=== PATIENT | male | born 1955 | race African-American/Black ===

== ENCOUNTER 2017-01-03 12:18 | Emergency (ER) | payer MEDICARE, OTHER ==
[~2017-01-03] VITALS: Ht 188 cm; Wt 95.3 kg
[~2017-01-03 12:18] MED LIST: CIPR7.5D AS; HYDR-971 PO; ONDA4TAB7 PO; PANT40TA3 PO
[2017-01-03 13:10] VITALS: BP 141/91
--- NOTE | 2017-01-03 13:17 | PHYS DOC ---
Past Medical History Past Medical History: Arthritis Past Surgical History: No Surgical History Alcohol Use: Occasionally Drug Use: Marijuana Adult General Chief Complaint Chief Complaint: [facility] HPI Patient is a 61 year old male presents to the emergency department stating that he has having left upper back and arm pain. Patient states this is been going on for the last few days. He also states that this is happened before in which he had seen his primary care physician in the head provided him with a nonsteroidal anti-inflammatory medication as well as a muscle relaxer. Patient states that his has his prescriptions right now so he is unable to tell me the name of the prescriptions. He denies any numbness or tingling down to his lower extremities. He denies any trauma or injury to the arm. He denies any numbness or tingling into the hand. Review of Systems Review of Systems Constitutional: Denies fever or chills [] Eyes: Denies change in visual acuity, redness, or eye pain [] HENT: Denies nasal congestion or sore throat [] Respiratory: Denies cough or shortness of breath [] Cardiovascular: No additional information not addressed in HPI [] GI: Denies abdominal pain, nausea, vomiting, bloody stools or diarrhea [] : Denies dysuria or hematuria [] Musculoskeletal: Denies back pain complain of left shoulder and upper back pain and discomfort. Integument: Denies rash or skin lesions [] Neurologic: Denies headache, focal weakness or sensory changes [] Endocrine: Denies polyuria or polydipsia [] Allergies Allergies Allergies Coded Allergies Type Severity Reaction Last Updated Verified No Known Drug Allergies 09/24/13 No Physical Exam Physical Exam Constitutional: Well developed, well nourished, no acute distress, non-toxic appearance. [] HENT: Normocephalic, atraumatic, bilateral external ears normal, oropharynx moist, no oral exudates, nose normal. [] Eyes: PERRLA, EOMI, conjunctiva normal, no discharge. [] Neck: Normal range of motion, no tenderness, supple, no stridor. [] Cardiovascular:Heart rate regular rhythm, no murmur [] Lungs & Thorax: Bilateral breath sounds clear to auscultation [] Skin: Warm, dry, no erythema, no rash. [] Back: Patient was noted to have tenderness in the left upper back area as well as into the left upper arm. Extremities: No tenderness, no cyanosis, no clubbing, ROM intact, no edema. Peripheral pulses 2+ cap refill brisk less than 2 seconds. Patient with decreased range of motion of the left upper arm. Patient does have equal sensation noted bilaterally. Neurologic: Alert and oriented X 3, normal motor function, normal sensory function, no focal deficits noted. [] Psychologic: Affect normal, judgement normal, mood normal. [] Current Patient Data Vital Signs Vital Signs Date Time Temp Pulse Resp B/P (MAP) Pulse Ox O2 Delivery O2 Flow Rate FiO2 01/03/17 13:10 98.6 93 16 98 Room Air 98.6 EKG EKG [] Radiology/Procedures Radiology/Procedures [][facility] [address] [place] [address] IMAGING REPORT Signed PATIENT: ALEXIS GRAY ACCOUNT: [id number] : 1955 LOCATION: ER AGE: 61 SEX: M EXAM STATUS: REG ER ORD. PHYSICIAN: JOSE MANUEL DOSHI APRN REASON: left shoulder pain PROCEDURE: SHOULDER 2+V LEFT Indication chronic pain. Internally and externally rotated views of the left shoulder as well as a Y view were obtained. There is some mild glenohumeral degenerative change. Acute bony finding is not seen DICTATED and SIGNED BY: CATRACHITA PORTILLO MD DATE: 01/03/17 1339 CC: JOSE MANUEL DOSHI APRN; RADHIKA ROMERO MD; NON,STAFF ~ Course & Med Decision Making Course & Med Decision Making Pertinent Labs and Imaging studies reviewed. (See chart for details) Per radiology no acute bony findings noted. Patient does have degenerative changes. Patient was placed in a sling will recommend following up with his primary care orthopedic doctor. Recommended ice packs on 20 minutes off 20 minutes several times a day. Patient can continue using his nonsteroidal anti- inflammatories as well as muscle relaxers at home. Signs and symptoms to return back to emergency department provided. Patient agrees with discharge instructions treatment regimens and follow-up recommendations. Spoke with patient regards to taken the arm out of the sling 4-5 times a day to make sure that he can do some active range of motion with the shoulder to prevent freezing of the shoulder. [] Dragon Disclaimer Dragon Disclaimer This electronic medical record was generated, in whole or in part, using a voice recognition dictation system. Departure Departure Impression: Primary Impression: Shoulder pain, left Disposition: 01 HOME, SELF-CARE Condition: STABLE Referrals: RADHIKA ROMERO MD (PCP) SONIA GALLEGO MD Patient Instructions: Arm Sling Use, [id number], Shoulder Pain, [id number] Additional Instructions: Activity as tolerated. With this in the next week. Take the arm out of the sling 4-5 times a day and do active range of motion. Continue to use her home medications in which she state you have nonsteroidal anti-inflammatories as well as muscle relaxers. Follow-up to primary care physician or orthopedic within the next week. Return back to emergency prior signs symptoms of become worse. JOSE MANUEL DOSHI APRN Jan 03, 2017 13:17
--- NOTE | 2017-01-03 13:42 | RAD ---
Indication chronic pain. Internally and externally rotated views of the left shoulder as well as a Y view were obtained. There is some mild glenohumeral degenerative change. Acute bony finding is not seen
== END 2017-01-03 13:57 | disposition home or self-care (01) ==
LOC: ER 12:18
DX: M25.512 Pain in left shoulder (principal); M54.6 Pain in thoracic spine; M19.90 Unspecified osteoarthritis, unspecified site; F12.10 Cannabis abuse, uncomplicated
CPT/HCPCS: 73030; 99284

== ENCOUNTER 2017-11-06 20:55 | Emergency (ER) | payer MEDICARE, OTHER ==
[2017-11-06] MEDS: FLUORESCEIN OPHTH TEST STRIP. OS (21:30)
[2017-11-06] MEDS: TETRACAINE 0.5% OPHTH SOLUTION 4ML BOTTLE. OS (21:30)
== END 2017-11-06 21:47 | disposition left against medical advice (07) ==
LOC: ER 20:55
DX: H57.12 Ocular pain, left eye (principal); Z53.21 Procedure and treatment not carried out due to patient leaving prior to being seen by health care provider

== ENCOUNTER 2018-01-13 21:45 | Emergency (ER) | payer MEDICARE ==
[2018-01-13 22:29] LABS: ADD MAN DIFF? NO
[2018-01-13 22:33] LABS: BASO # 0.1 x10^3/uL (0.0-0.2); BASO % 1 % (0-3); EOS # 0.1 x10^3/uL (0.0-0.7); EOS % 1 % (0-3); HEMATOCRIT 43.2 % (39.0-53.0); HEMOGLOBIN 15.1 g/dL (13.0-17.5); LYMPH % 20 % (24-48); MEAN CORPUSCULAR HEMOGLOBIN 34 pg (25-35); MEAN CORPUSCULAR HGB CONC 35 g/dL (31-37); MEAN CORPUSCULAR VOLUME 98 fL (79-100); MONO # 0.8 x10^3/uL (0.0-1.1); MONO % 7 % (0-9); NEUT # 7.4 x10^3uL (1.8-7.7); NEUT % 72 % (31-73); PLATELET COUNT 263 x10^3/uL (140-400); RED BLOOD COUNT 4.42 x10^6/uL (4.30-5.70); WHITE BLOOD COUNT 10.4 x10^3/uL (4.0-11.0)
[2018-01-13 22:43] LABS: ANION GAP 10 (6-14); BLOOD UREA NITROGEN 7 mg/dL (8-26); CALCIUM 8.7 mg/dL (8.5-10.1); CARBON DIOXIDE 25 mmol/L (21-32); CHLORIDE 104 mmol/L (98-107); CREATININE 1.4 mg/dL (0.7-1.3); GFR 62.6; GLUCOSE 132 mg/dL (70-99); POTASSIUM 3.2 mmol/L (3.5-5.1); SODIUM 139 mmol/L (136-145)
[2018-01-13 22:46] LABS: ALBUMIN 3.2 g/dL (3.4-5.0); ALK PHOS 111 U/L (46-116); ALT (SGPT) 22 U/L (16-63); AST (SGOT) 14 U/L (15-37); DIRECT BILIRUBIN 0.1 mg/dL (0.0-0.2); LIPASE 126 U/L (73-393); TOTAL BILIRUBIN 0.4 mg/dL (0.2-1.0); TOTAL PROTEIN 7.2 g/dL (6.4-8.2)
[2018-01-13] MEDS ORDERED: IOHEXOL 300 MG/ML 100ML VIAL. IV (23:00)
[2018-01-13] MEDS ORDERED: CONTRAST GIVEN. MC (23:00)
[2018-01-13] MEDS: MORPHINE SULFATE 10 MG/ML VIAL. IV (23:10)
[2018-01-13] MEDS ORDERED: IV NORMAL SALINE 1000ML BAG 1,000 ML IV (23:30)
[2018-01-13 23:38] LABS: BILIRUBIN,URINE NEGATIVE (NEG); CLARITY,URINE CLEAR; COLOR,URINE YELLOW; GLUCOSE,URINE NEGATIVE (NEG); NITRITE,URINE NEGATIVE (NEG); PH,URINE 7.5; PROTEIN,URINE NEGATIVE (NEG-TRACE)
[2018-01-13 23:45] LABS: BACTERIA,URINE 0 /HPF (0-FEW); RBC,URINE OCC /HPF (0-2); SQUAMOUS EPITHELIAL CELL,UR FEW /LPF; WBC,URINE RARE /HPF (0-4)
== END 2018-01-14 00:15 | disposition home or self-care (01) ==
LOC: ER 01-14 00:15
DX: R10.84 Generalized abdominal pain (principal); R11.2 Nausea with vomiting, unspecified; M19.90 Unspecified osteoarthritis, unspecified site; F32.9 Major depressive disorder, single episode, unspecified
CPT/HCPCS: 36415; 74177; 80048; 80076; 81001; 83690; 85025; 96374; 99285-25; J2270

== ENCOUNTER 2018-06-24 09:34 | Emergency (ER) | payer MEDICARE, OTHER ==
[~2018-06-24] VITALS: Ht 190.5 cm; Wt 102.1 kg
[~2018-06-24 09:34] MED LIST changes: +ESOM40CA PO; +HYDR-3164 PO; -HYDR-971 PO; +METO10TA81 PO
[2018-06-24] MEDS ORDERED: IV NORMAL SALINE 1000ML BAG 1,000 ML IV SCH (09:56)
[2018-06-24] MEDS ORDERED: fentaNYL PF VIAL 100 MCG/2 ML VIAL IV ONE ×2 (10:00→13:15)
[2018-06-24] MEDS ORDERED: ONDANSETRON PF 4 MG/2 ML VIAL. IV ONE ×2 (10:00→13:15)
--- NOTE | 2018-06-24 10:01 | PHYS DOC ---
Past Medical History Past Medical History: Arthritis, Depression, Other Additional Past Medical Histor: feet swelling,CHRONIC PAIN Past Surgical History: No Surgical History Additional Information: 0.5 PPD Alcohol Use: Occasionally Drug Use: Marijuana Adult General Chief Complaint Chief Complaint: ABDOMINAL PAIN [facility] HPI Patient is a 62-year-old male who presents with complaint of mid abdominal pain but he states he has been having for approximately 6 months. Patient indicates that he has been seen a few times for the same complaint and states the symptoms are just progressively getting worse. He states that last night the pain kept him up and he states that he had to sleep sitting up because it seemed like he had vomit that was going up to his throat most of the night. He states he is just not been able to actually vomit but can feel it in his throat. He rates pain at an 8 out of 10 and describes it as a deep cramp. He states that food makes the pain worse and nothing improves his pain. Review of Systems Review of Systems Constitutional: Denies fever or chills [] Respiratory: Denies cough or shortness of breath [] Cardiovascular: No additional information not addressed in HPI [] GI: Complains of abdominal pain with nausea and vomiting. No diarrhea [] Neurologic: Denies headache, focal weakness or sensory changes [] All other systems were reviewed and found to be within normal limits, except as documented in this note. Current Medications Current Medications Current Medications Medications (Trade) Dose Ordered Sig/Louis Start Time Stop Time Status Last Admin Dose Admin Fentanyl Citrate (Fentanyl 2ml Vial) 50 mcg 1X ONCE 06/24/18 13:15 06/24/18 13:16 DC Info (CONTRAST GIVEN -- Rx MONITORING) 1 each PRN DAILY PRN 06/24/18 11:45 06/26/18 11:44 Iohexol (Omnipaque 300 Mg/ml) 75 ml 1X ONCE 06/24/18 12:00 06/24/18 12:01 DC 06/24/18 11:54 75 ML Ondansetron HCl (Zofran) 4 mg 1X ONCE 06/24/18 13:15 06/24/18 13:16 DC Sodium Chloride 1,000 ml @ 1,000 mls/hr Q1H 06/24/18 09:56 06/24/18 10:55 DC 06/24/18 10:20 1,000 MLS/HR Allergies Allergies Allergies Coded Allergies Type Severity Reaction Last Updated Verified No Known Drug Allergies 09/24/13 No Physical Exam Physical Exam Constitutional: Well developed, well nourished, no acute distress, non-toxic appearance. [] HENT: Normocephalic, atraumatic, bilateral external ears normal, oropharynx moist, no oral exudates, nose normal. [] Eyes: PERRLA, EOMI, conjunctiva normal, no discharge. [] Neck: Normal range of motion, no tenderness, supple, no stridor. [] Cardiovascular: Regular rate and rhythm, no murmur [] Lungs & Thorax: Bilateral breath sounds clear to auscultation [] Abdomen: Bowel sounds normal, soft, with moderate tenderness from the epigastric region down to the umbilicus. [] Skin: Warm, dry, no erythema, no rash. [] Extremities: No tenderness, no cyanosis, no clubbing, ROM intact, no edema. [] Neurologic: Alert and oriented X 3, normal motor function, normal sensory function, no focal deficits noted. [] Current Patient Data Vital Signs Vital Signs Date Time Temp Pulse Resp B/P (MAP) Pulse Ox O2 Delivery O2 Flow Rate FiO2 06/24/18 12:30 76 14 142/70 (94) 99 Room Air 06/24/18 09:34 97.9 97.9 Lab Values Laboratory Tests Test 06/24/18 10:25 06/24/18 10:55 White Blood Count 13.5 x10^3/uL (4.0-11.0) H Red Blood Count 4.59 x10^6/uL (4.30-5.70) Hemoglobin 15.4 g/dL (13.0-17.5) Hematocrit 44.3 % (39.0-53.0) Mean Corpuscular Volume 97 fL (79-100) Mean Corpuscular Hemoglobin 34 pg (25-35) Mean Corpuscular Hemoglobin Concent 35 g/dL (31-37) Red Cell Distribution Width 12.7 % (11.5-14.5) Platelet Count 282 x10^3/uL (140-400) Neutrophils (%) (Auto) 73 % (31-73) Lymphocytes (%) (Auto) 18 % (24-48) L Monocytes (%) (Auto) 8 % (0-9) Eosinophils (%) (Auto) 0 % (0-3) Basophils (%) (Auto) 1 % (0-3) Neutrophils # (Auto) 9.9 x10^3uL (1.8-7.7) H Lymphocytes # (Auto) 2.4 x10^3/uL (1.0-4.8) Monocytes # (Auto) 1.1 x10^3/uL (0.0-1.1) Eosinophils # (Auto) 0.0 x10^3/uL (0.0-0.7) Basophils # (Auto) 0.1 x10^3/uL (0.0-0.2) Sodium Level 139 mmol/L (136-145) Potassium Level 5.0 mmol/L (3.5-5.1) Chloride Level 103 mmol/L (98-107) Carbon Dioxide Level 26 mmol/L (21-32) Anion Gap 10 (6-14) Blood Urea Nitrogen 13 mg/dL (8-26) Creatinine 1.3 mg/dL (0.7-1.3) Estimated GFR (Cockcroft-Gault) 68.1 BUN/Creatinine Ratio 10 (6-20) Glucose Level 94 mg/dL (70-99) Calcium Level 9.1 mg/dL (8.5-10.1) Total Bilirubin 0.5 mg/dL (0.2-1.0) Aspartate Amino Transferase (AST) 17 U/L (15-37) Alanine Aminotransferase (ALT) 25 U/L (16-63) Alkaline Phosphatase 118 U/L (46-116) H Total Protein 7.4 g/dL (6.4-8.2) Albumin 3.2 g/dL (3.4-5.0) L Albumin/Globulin Ratio 0.8 (1.0-1.7) L Lipase 113 U/L (73-393) Urine Collection Type Void Urine Color Yellow Urine Clarity Clear Urine pH 8.5 Urine Specific [place] 1.015 Urine Protein Negative mg/dL (NEG-TRACE) Urine Glucose (UA) Negative mg/dL (NEG) Urine Ketones (Stick) Negative mg/dL (NEG) Urine Blood Negative (NEG) Urine Nitrite Negative (NEG) Urine Bilirubin Negative (NEG) Urine Urobilinogen Dipstick 1.0 mg/dL (0.2 mg/dL) Urine Leukocyte Esterase Negative (NEG) Urine RBC Occ /HPF (0-2) Urine WBC 0 /HPF (0-4) Urine Squamous Epithelial Cells Occ /LPF Urine Bacteria 0 /HPF (0-FEW) Laboratory Tests 06/24/18 10:25 Laboratory Tests 06/24/18 10:25 EKG EKG [] Radiology/Procedures Radiology/Procedures [] Impressions: PROCEDURE: CT ABD PELV W/ IV CONTRST ONLY CT ABD PELV W/ IV CONTRST ONLY Indication: Abdominal pain Technique: Postcontrast CT imaging was performed of the abdomen and pelvis, multiplanar reconstruction images submitted. No oral contrast was given. One or more of the following individualized dose reduction techniques were utilized for this examination: 1. Automated exposure control 2. Adjustment of the mA and/or kV according to patient size 3. Use of iterative reconstruction technique. Comparison: January 13, 2018 Findings: There is again some linear fibrotic change or atelectasis at the visualized lung bases bilaterally. There are similar several scattered foci of hypodensity of the liver, largest of the left lobe about 2.5 cm, density characteristics of the larger foci more cystlike. Smaller foci are otherwise difficult to accurately characterize. Both kidneys enhance, no hydronephrosis. Small focus of hypodensity of the mid anterior right kidney about 0.9 cm is somewhat difficult to accurately characterize given small size although internal density measurements more cystlike at 13 Hounsfield units. There is no adrenal nodularity. No focal abnormality is identified of the pancreas or spleen. Accurate evaluation of bowel is limited without oral contrast, no bowel dilatation, free air, free fluid. Normal appendix is visualized. No significant localized inflammatory type change is identified. IMPRESSION: 1. There is no CT evidence of acute appendicitis, no significant localized inflammatory type change identified. 2. There are again scattered hypodense foci of the liver, largest foci suggestive of cysts. There is also probable small cyst of the right kidney. Electronically signed by: eVntura Briseno MD (06/24/2018 12:34 PM) [id number] Course & Med Decision Making Course & Med Decision Making Pertinent Labs and Imaging studies reviewed. (See chart for details) [] Dragon Disclaimer Dragon Disclaimer This electronic medical record was generated, in whole or in part, using a voice recognition dictation system. Departure Departure Impression: Primary Impression: Epigastric abdominal pain Disposition: 01 HOME, SELF-CARE Condition: STABLE Referrals: RADHIKA ROMERO MD (PCP) Patient Instructions: Abdominal Pain Scripts Pantoprazole Sodium (PROTONIX) 20 Mg Tablet.dr 1 TAB PO DAILY, #30 TAB Prov: GWEN PAYTON Jr. DO 06/24/18 Ondansetron Hcl (ZOFRAN) 4 Mg Tablet 4 MG PO PRN TID PRN for NAUSEA, #15 nausea/vomiting Prov: GWEN PAYTON Jr. DO 06/24/18 Hydrocodone/Apap 5-325 (NORCO 5-325 TABLET) 1 Each Tablet 1 EACH PO PRN Q6HRS PRN for PAIN, #12 as needed for pain Prov: GWEN PAYTON Jr. DO 06/24/18 GWEN PAYTON Jr. DO Jun 24, 2018 10:01
[2018-06-24 10:34] LABS: BASO # 0.1 x10^3/uL (0.0-0.2); BASO % 1 % (0-3); EOS % 0 % (0-3); HEMATOCRIT 44.3 % (39.0-53.0); HEMOGLOBIN 15.4 g/dL (13.0-17.5); LYMPH # 2.4 x10^3/uL (1.0-4.8); LYMPH % 18 % (24-48); MEAN CORPUSCULAR HEMOGLOBIN 34 pg (25-35); MEAN CORPUSCULAR HGB CONC 35 g/dL (31-37); MEAN CORPUSCULAR VOLUME 97 fL (79-100); MONO # 1.1 x10^3/uL (0.0-1.1); MONO % 8 % (0-9); NEUT # 9.9 x10^3uL (1.8-7.7); NEUT % 73 % (31-73); PLATELET COUNT 282 x10^3/uL (140-400); RED BLOOD COUNT 4.59 x10^6/uL (4.30-5.70); RED CELL DISTRIBUTION WIDTH 12.7 % (11.5-14.5); WHITE BLOOD COUNT 13.5 x10^3/uL (4.0-11.0)
--- NOTE | 2018-06-24 10:45 | EKG ---
[facility] [address] [place] [address] Test Date: 2018-06-24 Test Time: 10:03:03 Pat Name: ALEXIS GRAY Department: Room: Gender: M [employer]el [employer]er: : 1955 Requested By: GWEN PAYTON Order Number: [id number] Reading MD: Measurements Intervals [place] Rate: 86 P: 46 MS: 182 QRS: -21 QRSD: 78 T: 35 QT: 350 QTc: 421 Interpretive Statements SINUS RHYTHM LEFTWARD AXIS OTHERWISE NORMAL ECG No previous ECG available for comparison
[2018-06-24 10:47] LABS: CALCIUM 9.1 mg/dL (8.5-10.1); CREATININE 1.3 mg/dL (0.7-1.3); GFR 68.1
[2018-06-24 10:54] LABS: ALBUMIN 3.2 g/dL (3.4-5.0); ALBUMIN/GLOBULIN RATIO 0.8 (1.0-1.7); TOTAL BILIRUBIN 0.5 mg/dL (0.2-1.0); TOTAL PROTEIN 7.4 g/dL (6.4-8.2)
[2018-06-24 11:03] LABS: BILIRUBIN,URINE NEGATIVE (NEG); CLARITY,URINE CLEAR; COLOR,URINE YELLOW; NITRITE,URINE NEGATIVE (NEG); PH,URINE 8.5; PROTEIN,URINE NEGATIVE (NEG-TRACE)
[2018-06-24 11:11] LABS: SQUAMOUS EPITHELIAL CELL,UR OCC /LPF
[2018-06-24 11:12] LABS: BACTERIA,URINE 0 /HPF (0-FEW); RBC,URINE OCC /HPF (0-2); WBC,URINE 0 /HPF (0-4)
[2018-06-24] MEDS ORDERED: CONTRAST GIVEN. MC PRN (11:45)
[2018-06-24] MEDS ORDERED: IOHEXOL 300 MG/ML 100ML VIAL. IV ONE (12:00)
--- NOTE | 2018-06-24 12:38 | RAD ---
CT ABD PELV W/ IV CONTRST ONLY Indication: Abdominal pain Technique: Postcontrast CT imaging was performed of the abdomen and pelvis, multiplanar reconstruction images submitted. No oral contrast was given. One or more of the following individualized dose reduction techniques were utilized for this examination: 1. Automated exposure control 2. Adjustment of the mA and/or kV according to patient size 3. Use of iterative reconstruction technique. Comparison: January 13, 2018 Findings: There is again some linear fibrotic change or atelectasis at the visualized lung bases bilaterally. There are similar several scattered foci of hypodensity of the liver, largest of the left lobe about 2.5 cm, density characteristics of the larger foci more cystlike. Smaller foci are otherwise difficult to accurately characterize. Both kidneys enhance, no hydronephrosis. Small focus of hypodensity of the mid anterior right kidney about 0.9 cm is somewhat difficult to accurately characterize given small size although internal density measurements more cystlike at 13 Hounsfield units. There is no adrenal nodularity. No focal abnormality is identified of the pancreas or spleen. Accurate evaluation of bowel is limited without oral contrast, no bowel dilatation, free air, free fluid. Normal appendix is visualized. No significant localized inflammatory type change is identified. IMPRESSION: 1. There is no CT evidence of acute appendicitis, no significant localized inflammatory type change identified. 2. There are again scattered hypodense foci of the liver, largest foci suggestive of cysts. There is also probable small cyst of the right kidney. Electronically signed by: Ventura Briseno MD (06/24/2018 12:34 PM) [id number]
[2018-06-24 13:30] VITALS: BP 141/95
[2018-06-24] MEDS ORDERED: HYDR-3164 PO (13:35)
[2018-06-24] MEDS ORDERED: ONDA4TAB7 PO (13:35)
[2018-06-24] MEDS ORDERED: PANT20TA2 PO (13:35)
== END 2018-06-24 13:46 | disposition home or self-care (01) ==
LOC: ER 09:34
DX: R10.13 Epigastric pain (principal); R10.33 Periumbilical pain; R11.2 Nausea with vomiting, unspecified; G89.29 Other chronic pain; F17.200 Nicotine dependence, unspecified, uncomplicated
CPT/HCPCS: 36415; 74177; 80053; 81001; 83690; 85025; 93005; 96361; 96374; 96375; 99284; J2405; J3010; J7030; Q9967

== ENCOUNTER 2018-08-09 08:16 | Emergency (ER) | payer OTHER ==
[~2018-08-09] VITALS: Ht 188 cm; Wt 103.0 kg
[~2018-08-09 08:16] MED LIST changes: +PANT20TA2 PO
[2018-08-09 08:32] VITALS: BP 155/92
[2018-08-09] MEDS ORDERED: KETOROLAC 15 MG/ML VIAL. IV ONE (09:00)
--- NOTE | 2018-08-09 09:09 | PHYS DOC ---
Past Medical History Past Medical History: Arthritis, Depression, Other Additional Past Medical Histor: CHRONIC PAIN Past Surgical History: No Surgical History Alcohol Use: Occasionally Drug Use: Marijuana Adult General Chief Complaint Chief Complaint: RIB PAIN HPI HPI Patient is a 62 year old male who presents with point tenderness to left lower rib that began last evening after sneezing. He reports hearing a "pop" while sneezing. He reports pain is 10/10 and aggravated by deep breathing and moving around. No reported alleviating factors. He denies any shortness of breath, cough, fever, chills or abdominal pain. No recent illness.[ ] Review of Systems Review of Systems Constitutional: Denies fever or chills [] Eyes: Denies change in visual acuity, redness, or eye pain [] HENT: Denies nasal congestion or sore throat [] Respiratory: Denies cough or shortness of breath [] Cardiovascular: No additional information not addressed in HPI [] GI: Denies abdominal pain, nausea, vomiting, bloody stools or diarrhea [] : Denies dysuria or hematuria [] Musculoskeletal: Left lower rib pain. Denies back pain or joint pain [] Integument: Denies rash or skin lesions [] Neurologic: Denies headache, focal weakness or sensory changes [] Endocrine: Denies polyuria or polydipsia [] All other systems were reviewed and found to be within normal limits, except as documented in this note. Current Medications Current Medications Current Medications Medications (Trade) Dose Ordered Sig/Louis Start Time Stop Time Status Last Admin Dose Admin Ketorolac Tromethamine (Toradol 15mg Vial) 15 mg 1X ONCE 08/09/18 09:00 08/09/18 09:01 DC 08/09/18 09:09 15 MG Allergies Allergies Allergies Coded Allergies Type Severity Reaction Last Updated Verified No Known Drug Allergies 09/24/13 No Physical Exam Physical Exam Constitutional: Well developed, well nourished, no acute distress, non-toxic appearance. [] HENT: Normocephalic, atraumatic, bilateral external ears normal, oropharynx moist, no oral exudates, nose normal. [] Eyes: PERRLA, EOMI, conjunctiva normal, no discharge. [] Neck: Normal range of motion, no tenderness, supple, no stridor. [] Cardiovascular:Heart rate regular rhythm, no murmur [] Lungs & Thorax: Bilateral breath sounds clear to auscultation, reproducible point tenderness to palpation at anterior T9-10 [] Abdomen: Bowel sounds normal, soft, no tenderness, no masses, no pulsatile masses. [] Skin: Warm, dry, no erythema, no rash. [] Back: No tenderness, no CVA tenderness. [] Extremities: No tenderness, no cyanosis, no clubbing, ROM intact, no edema. [] Neurologic: Alert and oriented X 3, normal motor function, normal sensory function, no focal deficits noted. [] Psychologic: Affect normal, judgement normal, mood normal. [] Current Patient Data Vital Signs Vital Signs Date Time Temp Pulse Resp B/P (MAP) Pulse Ox O2 Delivery O2 Flow Rate FiO2 08/09/18 08:32 98.9 90 20 155/92 (113) 97 Room Air 98.9 EKG EKG [] Radiology/Procedures Radiology/Procedures [] Impressions: MY READ ATELECTASIS NO FRACTURE OR PTX Course & Med Decision Making Course & Med Decision Making Patient is a 62 year old male with past medical history of arthritis, frozen shoulder, and GERD presents with point tenderness to anterolateral portion of ribs T9-10 most consistent with fracture. Rule out pulmonary injury. Pertinent Labs and Imaging studies reviewed. (See chart for details) Plan Chest x-ray Pain management RECOMMENDED DEEP BREATHING EXERCISES for primary prevention of atelectasis RETURN PREC DISCUSSED SHORT COURSE TERA COUNSELED ON EFFECTS OF THIS EMDCIATION [] Dragon Disclaimer Dragon Disclaimer This electronic medical record was generated, in whole or in part, using a voice recognition dictation system. Departure Departure Impression: Primary Impression: Rib pain Disposition: HOME, SELF-CARE Condition: STABLE Referrals: RADHIAK ROMERO MD (PCP) Scripts Hydrocodone/Apap 5-325 (NORCO 5-325 TABLET) 1 Each Tablet 1-2 EACH PO PRN Q6HRS PRN for PAIN, #15 as needed for pain Prov: AMANDA GOLDBERG MD 08/09/18 AMANDA GOLDBERG MD Aug 09, 2018 09:09
[2018-08-09] MEDS ORDERED: HYDR-3164 PO (09:19)
--- NOTE | 2018-08-09 09:27 | RAD ---
Indication: Rule out after sneezing for one day. Left lower side rib pain TECHNIQUE: PA chest and 4 views of the left ribs COMPARISON: None FINDINGS: Heart is normal in size. Patchy opacities are seen in the bilateral lower lung zones. No pneumothorax or pleural effusion. No acute fractures. IMPRESSION: Bibasilar patchy opacities likely secondary to subsegmental atelectasis, aspiration or developing pneumonia. Electronically signed by: Serge Hardin DO (08/09/2018 9:24 AM) [facility]
[2018-08-09] MEDS ORDERED: HYDROcodone/APAP 5/325MG 1 TAB TABLET PO ONE (09:45)
== END 2018-08-09 10:00 | disposition home or self-care (01) ==
LOC: ER 08:16
DX: R07.81 Pleurodynia (principal); G89.29 Other chronic pain
CPT/HCPCS: 71101; 96374; 99283; J1885

== ENCOUNTER 2018-10-20 13:26 | Emergency (ER) | payer OTHER ==
[~2018-10-20] VITALS: Ht 188 cm; Wt 107.5 kg
[2018-10-20] MEDS ORDERED: KETOROLAC 30 MG/ML VIAL. IM ONE (14:00)
--- NOTE | 2018-10-20 14:04 | PHYS DOC ---
Past Medical History Past Medical History: Arthritis, Depression, Other Additional Past Medical Histor: CHRONIC PAIN Past Surgical History: No Surgical History Additional Information: 0.5 PPD Alcohol Use: Occasionally Drug Use: Marijuana Adult General Chief Complaint Chief Complaint: LOWER EXT PAIN HPI HPI Patient is 62-year-old male who presents with a fall last night. He states that he hit his face and has pain in the left orbital region. He also states of his left leg gave out and he fell on the leg. He rates his pain as 8 out of 10. Pain is aching and throbbing. Denies any associated symptoms. States that he fell after his left leg gave out. Also states that he's had left calf pain for 2 weeks. Review of Systems Review of Systems Constitutional: Denies fever or chills [] Eyes: Denies change in visual acuity, redness, or eye pain [] HENT: Denies nasal congestion or sore throat [] Respiratory: Denies cough or shortness of breath [] Cardiovascular: No additional information not addressed in HPI [] GI: Denies abdominal pain, nausea, vomiting, bloody stools or diarrhea [] : Denies dysuria or hematuria [] Musculoskeletal: Denies back pain. Reports L orbital pain and L knee and calf pain. Integument: Denies rash or skin lesions [] Neurologic: Denies headache, focal weakness or sensory changes [] Endocrine: Denies polyuria or polydipsia [] Complete systems were reviewed and found to be within normal limits, except as documented in this note. Current Medications Current Medications Current Medications Medications (Trade) Dose Ordered Sig/[facility] Start Time Stop Time Status Last Admin Dose Admin Ketorolac Tromethamine (Toradol 30mg Vial) 30 mg 1X ONCE 10/20/18 14:00 10/20/18 14:01 DC 10/20/18 14:19 30 MG Allergies Allergies Allergies Coded Allergies Type Severity Reaction Last Updated Verified No Known Drug Allergies 09/24/13 No Physical Exam Physical Exam Constitutional: Well developed, well nourished, no acute distress, non-toxic appearance. [] HENT: Normocephalic, atraumatic, bilateral external ears normal, oropharynx moist, no oral exudates, nose normal. minor bump over his left eyebrow. Eyes: PERRLA, EOMI, conjunctiva normal, no discharge. [] Neck: Normal range of motion, no tenderness, supple, no stridor. [] Cardiovascular:Heart rate regular rhythm, no murmur [] Lungs & Thorax: Bilateral breath sounds clear to auscultation [] Abdomen: Soft, no tenderness, no masses, no pulsatile masses. [] Skin: Warm, dry, no erythema, no rash. [] Back: No tenderness. Extremities: Tenderness to the posterior and bilateral sides of the knee, tender ness to the calf, and to the anterior portion of the LLE. No redness, no warmth. no cyanosis, no clubbing, ROM intact, no edema. [] Neurologic: Alert and oriented X 3, normal motor function, normal sensory function, no focal deficits noted. [] Psychologic: Affect normal, judgement normal, mood normal. [] Current Patient Data Vital Signs Vital Signs Date Time Temp Pulse Resp B/P (MAP) Pulse Ox O2 Delivery O2 Flow Rate FiO2 10/20/18 13:50 98.3 83 20 123/80 (94) 98 Room Air 98.3 EKG EKG [] Radiology/Procedures Radiology/Procedures []PATIENT: ALEXIS GRAY EACCOUNT: [id number]#: [id number] : 1955 LOCATION: ER AGE: 62 SEX: M EXAM STATUS: REG ER ORD. PHYSICIAN: JOHNSON BLANDON APRN REASON: calf pain x 2 weeks PROCEDURE: VENOUS LOWER EXTREMITY LEFT Left leg venous Doppler study: Clinical indications: Left calf pain. Findings: Duplex sonography (including mcgill scale evaluation and color flow and waveform spectral analysis) of the proximal aspect of the greater saphenous vein and the proximal aspect of the profunda femoral vein and the entire length of the common femoral and superficial femoral and popliteal veins and the tibioperoneal trunk and the proximal aspect of the posterior tibial and peroneal veins of the left leg was performed. Normal compressibility, augmentation of color Doppler flow after calf compression, and respiratory variation of Doppler flow is seen. Thus, there are no sonographic findings of deep venous thrombosis within these veins. Impression: There are no sonographic findings of deep venous thrombosis within the veins discussed above of the left lower extremity. Electronically signed by: Amauri Basurto MD (10/20/2018 2:24 PM) [place] [id number] PATIENT: ALEXIS GRAY ACCOUNT: [id number] : 1955 LOCATION: ER AGE: 62 SEX: M EXAM STATUS: REG ER ORD. PHYSICIAN: JOHNSON BLANDON APRN REASON: LEFT LEG PAIN X 1 WEEK, PT STATES HIS KNEE GAVE OUT LAST NIGHT PROCEDURE: KNEE LEFT 3V Indications: Left leg pain for one week. 3 view left knee study: No acute fracture or dislocation or osteolytic process is seen. Two-view study left tibia and fibula: No acute fracture or lytic process is seen. No periosteal reaction is evident. IMPRESSION: No acute fracture. Electronically signed by: Amauri Basurto MD (10/20/2018 2:20 PM) [facility] PATIENT: ALEXIS GRAY ACCOUNT: [id number] : 1955 LOCATION: ER AGE: 62 SEX: M EXAM STATUS: REG ER ORD. PHYSICIAN: JOHNSON BLANDON APRN REASON: LEFT LEG PAIN X 1WEEK, PT STATES HIS KNEE GAVE OUT LAST NIGHT PROCEDURE: TIBIA FIBULA LEFT Indications: Left leg pain for one week. 3 view left knee study: No acute fracture or dislocation or osteolytic process is seen. Two-view study left tibia and fibula: No acute fracture or lytic process is seen. No periosteal reaction is evident. IMPRESSION: No acute fracture. Electronically signed by: Amauri Basurto MD (10/20/2018 2:20 PM) [place] [id number] Course & Med Decision Making Course & Med Decision Making Pertinent Labs and Imaging studies reviewed. (See chart for details) Discussed symptoms with patient. I will order xrays and ultrasound of leg. I will also give an IM injection of Toradol. Patient is agreeable to this. I offered a CT of the face. Patient declines CT. Imaging results are unremarkable. Will send patient home to follow up with PCP. Brandonon Disclaimer Dragon Disclaimer This electronic medical record was generated, in whole or in part, using a voice recognition dictation system. Departure Departure Impression: Primary Impression: Fall Disposition: 01 HOME, SELF-CARE Condition: STABLE Referrals: RADHIKA ROMERO MD (PCP) Patient Instructions: Fall Prevention and Home Safety Additional Instructions: Follow up with primary care physician. Use OTC pain medication per label instructions. Problem Qualifiers Primary Impression: Fall Encounter type: initial encounter Qualified Codes: W19.XXXA - Unspecified fall, initial encounter JOHNSON BLANDON APRN October 20, 2018 14:04
--- NOTE | 2018-10-20 14:23 | RAD ---
Indications: Left leg pain for one week. 3 view left knee study: No acute fracture or dislocation or osteolytic process is seen. Two-view study left tibia and fibula: No acute fracture or lytic process is seen. No periosteal reaction is evident. IMPRESSION: No acute fracture. Electronically signed by: Amauri Basurto MD (10/20/2018 2:20 PM) [facility]
--- NOTE | 2018-10-20 14:26 | RAD ---
Left leg venous Doppler study: Clinical indications: Left calf pain. Findings: Duplex sonography (including mcgill scale evaluation and color flow and waveform spectral analysis) of the proximal aspect of the greater saphenous vein and the proximal aspect of the profunda femoral vein and the entire length of the common femoral and superficial femoral and popliteal veins and the tibioperoneal trunk and the proximal aspect of the posterior tibial and peroneal veins of the left leg was performed. Normal compressibility, augmentation of color Doppler flow after calf compression, and respiratory variation of Doppler flow is seen. Thus, there are no sonographic findings of deep venous thrombosis within these veins. Impression: There are no sonographic findings of deep venous thrombosis within the veins discussed above of the left lower extremity. Electronically signed by: Amauri Basurto MD (10/20/2018 2:24 PM) [facility]
[2018-10-20 15:01] VITALS: BP 130/87
== END 2018-10-20 15:01 | disposition home or self-care (01) ==
LOC: ER 13:26
DX: S09.93XA Unspecified injury of face, initial encounter (principal); M25.562 Pain in left knee; H57.12 Ocular pain, left eye; M79.662 Pain in left lower leg; G89.29 Other chronic pain; F17.200 Nicotine dependence, unspecified, uncomplicated; W18.39XA Other fall on same level, initial encounter; Y93.89 Activity, other specified; Y92.89 Other specified places as the place of occurrence of the external cause; Y99.8 Other external cause status
CPT/HCPCS: 73562; 73590; 93971; 96372; 99284; J1885

== ENCOUNTER → 2019-11-20 | Outpatient (CLI) | payer OTHER, MEDICAID ==
[~2019-11-20] MED LIST changes: +CYCL10TA2 PO; -PANT40TA3 PO; +PANT40TA77 PO; +QUET50TA5 PO; +TRAM50TA PO
== END ==
LOC: LAB 13:40
PROVIDERS: ATTEND Internal Medicine Gastroenterology
DX: Z12.11 Encounter for screening for malignant neoplasm of colon (principal); Z12.12 Encounter for screening for malignant neoplasm of rectum; Z11.59 Encounter for screening for other viral diseases
CPT/HCPCS: 36415; U0003

== ENCOUNTER → 2019-11-25 | Day surgery (SDC) | payer OTHER, MEDICAID ==
[~2019-11-25] MED LIST changes: +IV RINGERS,LACTATED 1000ML 1,000 ML IV ONE; +PROPOFOL 10 MG/ML (20ML) VIAL. IV ONE
[2019-11-25 09:18] VITALS: BP 138/87
--- NOTE | 2019-11-25 23:12 | CONS ---
DATE OF CONSULTATION: 11/25/2019 GASTROINTESTINAL CONSULTATION REFERRING PHYSICIAN: Arlene Marcus MD REASON FOR CONSULTATION: Colorectal screening and abdominal distention. HISTORY OF PRESENT ILLNESS: A 63-year-old -Swedish male with past medical history significant for gastroesophageal reflux disease as well as anxiety, is seen for screening colon. Bowel habits are regular without diarrhea or constipation. Weight has increased 15 pounds in the past year. He does have persistent epigastric and left upper quadrant discomfort. No family history of colon cancer is encountered. There has been no bleeding, no change in bowel habits with diarrhea or constipation. He has otherwise been in good health. PAST MEDICAL HISTORY: Anxiety, GERD. ALLERGIES: None. MEDICATIONS: Include hydrocodone, cyclobenzaprine, pantoprazole, Seroquel, and tramadol. SOCIAL HISTORY: He is a smoker. FAMILY HISTORY: Noncontributory. PAST SURGICAL HISTORY: Negative. REVIEW OF SYSTEMS: HEENT: There is no decrease in hearing or visual acuity issues. CARDIAC: There is no history of hypertension, palpitations, syncope. PULMONARY: History of tobaccoism. NEUROLOGIC: No stroke, migraine, neuropathy. PSYCHIATRIC: History of anxiety. HEMATOLOGIC: No bleeding, bruising, coagulopathy. DERMATOLOGIC: No skin rashes or pruritus. ENDOCRINE: No history of heat or cold intolerance, thyroid disease or diabetes. MUSCULOSKELETAL: History of osteoarthrosis. DERMATOLOGIC: No skin rashes or pruritus. PHYSICAL EXAMINATION: GENERAL: Reveals a well-nourished, well-developed -Swedish male who is alert, cooperative, in no acute distress. VITAL SIGNS: Temperature 97, pulse 76, respirations 20. LUNGS: Clear. CARDIOVASCULAR: Reveals an S1, S2 without S3, S4 or appreciable murmur. ABDOMEN: With a soft abdomen. Normoactive bowel sounds without appreciable hepatosplenomegaly. EXTREMITIES: Reveals no cyanosis, clubbing or edema. IMPRESSION: Colorectal screening is warranted at this time. Risks and benefits of procedure including risk of hemorrhage and perforation during the operation have been discussed, the patient is willing to proceed. If the colonoscopy is unrevealing, the patient has persistent pain , then interval CT scan of the abdomen and pelvis would be recommended to further assess the symptoms. FERNANDO GARCIA MD DR: TORI/arsalan JOB#: [id number] / [id number] ARLENE Oakley MD
== END | disposition home or self-care (01) ==
LOC: ENDOS 07:37
PROVIDERS: ATTEND Internal Medicine Gastroenterology
DX: Z12.11 Encounter for screening for malignant neoplasm of colon (principal); K64.0 First degree hemorrhoids; K57.30 Diverticulosis of large intestine without perforation or abscess without bleeding
CPT/HCPCS: 45378; J2704

== ENCOUNTER 2020-09-21 05:11 | Emergency (ER) | payer OTHER, MEDICAID ==
[~2020-09-21] VITALS: Ht 188 cm; Wt 107.7 kg
[~2020-09-21 05:11] MED LIST changes: -IV RINGERS,LACTATED 1000ML 1,000 ML IV ONE; -PROPOFOL 10 MG/ML (20ML) VIAL. IV ONE
--- NOTE | 2020-09-21 05:45 | EKG ---
[facility] [address] [place] [address] Test Date: 2020-09-21 Test Time: 05:35:06 Pat Name: ALEXIS GRAY Department: Room: Gender: M Media Marketing Director: : 1955 Requested By: STAFF NON Order Number: [id number] Reading MD: Measurements Intervals [place] Rate: 78 P: 47 NE: 192 QRS: -20 QRSD: 86 T: 26 QT: 366 QTc: 421 Interpretive Statements SINUS RHYTHM LEFTWARD AXIS OTHERWISE NORMAL ECG RI6.02 No previous ECG available for comparison
[2020-09-21] MEDS ORDERED: FAMOTIDINE 20 MG/2 ML VIAL IVP ONE (06:15)
[2020-09-21] MEDS ORDERED: IV NORMAL SALINE 1000ML BAG 1,000 ML IV ONE (06:15)
[2020-09-21] MEDS ORDERED: ONDANSETRON PF 4 MG/2 ML VIAL. IV ONE (06:15)
--- NOTE | 2020-09-21 06:21 | RAD ---
XR CHEST 1V History: Reason: cp / Spl. Instructions: / History: Comparison: August 09, 2018 Findings: Minimal left basilar linear atelectasis or scarring. No consolidation or pleural effusion. Normal hea rt size. No pneumothorax. Impression: 1. No acute cardiopulmonary process. Electronically signed by: Ashwin Holland DO (09/21/2020 6:18 AM) [facility]
[2020-09-21 06:29] LABS: CALCIUM 8.6 mg/dL (8.5-10.1); CREATININE 1.3 mg/dL (0.7-1.3); GFR 67.7; POTASSIUM 3.8 mmol/L (3.5-5.1)
[2020-09-21] MEDS ORDERED: LIDO:MAALOX 1:1 20 ML SINGLE DOSE. SWSW ONE (06:30)
--- NOTE | 2020-09-21 06:30 | PHYS DOC ---
Past Medical History Past Medical History: Arthritis, COPD, Depression, GERD, Other Additional Past Medical Histor: CHRONIC PAIN Past Surgical History: No Surgical History Smoking Status: Current Every Day Smoker Additional Information: 0.25 ppd Alcohol Use: Rarely Drug Use: Marijuana General Adult EDM: Chief Complaint: HEARTBURN/GI DISTRESS HPI: HPI: 64-year-old male presenting the emergency department today with epigastric abdominal pain. His pain started on Saturday. It is a burning pain that radiates up into his esophagus when he lays back and stops radiating when he sits up. He feels and smells a sour taste in his mouth at the time when this happens. He denies any vomiting. He denies being constipated but has had a few loose stools. He reports having darker stools recently. He denies drinking alcohol daily. He denies chest pain or shortness of breath. Review of systems negative for headache neck pain fevers chills. Negative for rashes arthralgias. All other review of systems negative. ED course: 64-year-old male presenting with epigastric abdominal pain. On arrival EKG was obtained which shows sinus rhythm with a regular rate. ST segments congruent. Not suggestive of acute ischemia. Chest x-ray blood work fecal occult blood sent for testing. Chest x-ray shows no acute findings. Blood work unremarkable. Fecal occult blood testing negative. We will discharge patient with Marnie and Sonud to follow-up with PCP in 1 to 2 days. He is to return for any worsening pain or any other concerns. The patient has been examined and was not found to have an emergency medical condition. The patient was then discharged home in stable condition to follow up with their primary care physician over the next 1-2 days. They were to return if their symptoms worsened or if they were concerned for any reason. They were also instructed to return to the emergency department if they were unable to get the recommended and appropriate follow-up. [id number] discharge instructions and return precautions were given. Patient's questions were answered to their satisfaction. Patient is comfortable with plan. Review of Systems: Review of Systems: Constitutional: Denies fever or chills. [] Eyes: Denies change in visual acuity. [] HENT: Denies nasal congestion or sore throat. [] Respiratory: Denies cough or shortness of breath. [] Cardiovascular: Denies chest pain or edema. [] GI: Denies nausea, vomiting, diarrhea. [] : Denies dysuria. [] Musculoskeletal: Denies back pain or joint pain. [] Integument: Denies rash. [] Neurologic: Denies headache, focal weakness or sensory changes. [] Endocrine: Denies polyuria or polydipsia. [] Lymphatic: Denies swollen glands. [] Psychiatric: Denies depression or anxiety. [] Heart Score: C/O Chest Pain: No Risk Factors: Risk Factors: DM, Current or recent (<one month) smoker, HTN, HLP, family history of CAD, obesity. Risk Scores: Score 0 - 3: 2.5% MACE over next 6 weeks - Discharge Home Score 4 - 6: 20.3% MACE over next 6 weeks - Admit for Clinical Observation Score 7 - 10: 72.7% MACE over next 6 weeks - Early Invasive Strategies Current Medications: Current Medications Medications (Trade) Dose Ordered Sig/[facility] Start Time Stop Time Status Last Admin Dose Admin Famotidine (Pepcid Vial) 20 mg 1X ONCE 09/21/20 06:15 09/21/20 06:16 DC 09/21/20 06:24 20 MG Ondansetron HCl (Zofran) 4 mg 1X ONCE 09/21/20 06:15 09/21/20 06:16 DC 09/21/20 06:24 4 MG Sodium Chloride 1,000 ml @ 1,000 mls/hr 1X ONCE 09/21/20 06:15 09/21/20 07:14 09/21/20 06:15 1,000 MLS/HR Allergies: Allergies: Allergies Coded Allergies Type Severity Reaction Last Updated Verified No Known Drug Allergies 11/25/19 No Physical Exam: PE: Constitutional: Well developed, well nourished, no acute distress, non-toxic appearance. [] HENT: Normocephalic, atraumatic, bilateral external ears normal, oropharynx moist, no oral exudates, nose normal. [] Eyes: PERRLA, EOMI, conjunctiva normal, no discharge. [] Neck: Normal range of motion, no tenderness, supple, no stridor. [] Cardiovascular:Heart rate regular rhythm, no murmur [] Lungs & Thorax: Bilateral breath sounds clear to auscultation [] Abdomen: Bowel sounds normal, soft, no tenderness, no masses, no pulsatile masses. [] No rebound tenderness or guarding. Negative McBurney's point. Negative Mcelroy sign. Rectal exam is unremarkable. Stool has no visible signs of blood. Skin: Warm, dry, no erythema, no rash. [] Back: No tenderness, no CVA tenderness. [] Extremities: No tenderness, no cyanosis, no clubbing, ROM intact, no edema. [] Neurologic: Alert and oriented X 3, normal motor function, normal sensory function, no focal deficits noted. [] Psychologic: Affect normal, judgement normal, mood normal. [] Current Patient Data: Vital Signs: Vital Signs Date Time Temp Pulse Resp B/P (MAP) Pulse Ox O2 Delivery O2 Flow Rate FiO2 09/21/20 05:25 98.1 77 20 137/85 (102) 98 Room Air 98.1 EKG: EKG: [] Radiology/Procedures: Radiology/Procedures: [] Course & Med Decision Making: Course & Med Decision Making Pertinent Labs and Imaging studies reviewed. (See chart for details) [] Dragon Disclaimer: Dragon Disclaimer: This electronic medical record was generated, in whole or in part, using a voice recognition dictation system. Departure Departure Impression: Primary Impression: Epigastric abdominal pain Disposition: 01 DC HOME SELF CARE/HOMELESS Condition: STABLE Referrals: RADHIKA ROMERO MD (PCP) Patient Instructions: Abdominal Pain Additional Instructions: EMERGENCY DEPARTMENT GENERAL DISCHARGE INSTRUCTIONS Follow-up with your primary physician in 1 to 2 days. Return to the emergency department if you have any new or concerning findings. Thank you for coming to [facility] Emergency Department (ED) today and trusting us with you care. We trust that you had a positive experience in our Emergency Department. If you wish to speak to the department management, you may call the Director at [phone]. Follow up is important in emergency/acute care visits. This condition should be evaluated by your primary care physician and any necessary consulting services for continued management within a few days (1-2) after discharge. Return to the emergency department if you have any new or concerning symptoms including but not limited to fever, chills, nausea, vomiting, intractable pain, any new rashes, chest pain, shortness of breath, uncontrolled bleeding, difficulty breathing, and/or vision loss. 1. Do you have a private Doctor? If you do not have a private doctor, please ask for a resource list of physicians or clinics that may be able to assist you with follow up care. 2. If a lab test or culture has been done and does not come back immediately, your results will be reviewed and you will be notified if you need a change in treatment. 3. Your care today has been supervised by a physician who is specially trained in emergency care. Many problems require more than one evaluation for a complete diagnosis and treatment. We recommend that you schedule your follow up appointment as recommended to ensure complete treatment of you illness or injury. If you are unable to obtain follow up care and continue to have a problem, or if your condition worsens, we recommend that you return to the ED. 4. We are not able to safely determine your condition over the phone nor are we able to give sound medical advice over the phone. For these safety reasons, if you call for medical advice we will ask you to come to the ED for further evaluation. IF YOUR SYMPTOMS WORSEN OR NEW SYMPTOMS DEVELOP, OR YOU HAVE CONCERNS ABOUT YOUR CONDITION; OR IF YOUR CONDITION WORSENS WHILE YOU ARE WAITING FOR YOUR FOLLOW UP APPOINTMENT; EITHER CONTACT YOUR PRIMARY CARE DOCTOR, THE PHYSICIAN WHOSE NAME AND NUMBER YOU WERE GIVEN, OR RETURN TO THE ED IMMEDIATELY. Scripts Famotidine (PEPCID) 40 Mg Tablet 40 MG PO HS, #14 TAB 0 Refills Prov: BAYLEE HUGHES MD 09/21/20 Ondansetron Hcl (ZOFRAN) 4 Mg Tablet 1 TAB PO Q8HRS PRN for NAUSEA, #8 TAB 0 Refills Prov: BAYLEE HUGHES MD 09/21/20 BAYLEE HUGHES MD Sep 21, 2020 06:30
[2020-09-21 06:34] LABS: ALBUMIN 3.6 g/dL (3.4-5.0); TOTAL BILIRUBIN 0.4 mg/dL (0.2-1.0); TOTAL PROTEIN 7.2 g/dL (6.4-8.2)
[2020-09-21 06:41] LABS: BASO # 0.1 x10^3/uL (0.0-0.2); BASO % 1 % (0-3); EOS # 0.1 x10^3/uL (0.0-0.7); EOS % 1 % (0-3); HEMATOCRIT 42.7 % (39.0-53.0); HEMOGLOBIN 14.3 g/dL (13.0-17.5); LYMPH # 2.6 x10^3/uL (1.0-4.8); LYMPH % 24 % (24-48); MEAN CORPUSCULAR HEMOGLOBIN 33 pg (25-35); MEAN CORPUSCULAR HGB CONC 34 g/dL (31-37); MEAN CORPUSCULAR VOLUME 98 fL (79-100); MONO # 1.1 x10^3/uL (0.0-1.1); MONO % 10 % (0-9); NEUT % 65 % (31-73); PLATELET COUNT 289 x10^3/uL (140-400); RED BLOOD COUNT 4.36 x10^6/uL (4.30-5.70); RED CELL DISTRIBUTION WIDTH 13.2 % (11.5-14.5); WHITE BLOOD COUNT 10.8 x10^3/uL (4.0-11.0)
[2020-09-21 06:48] LABS: PROTHROMBIN TIME PATIENT 13.6 SEC (11.7-14.0)
[2020-09-21 06:52] VITALS: BP 150/88
[2020-09-21 06:54] LABS: FECAL OB PT NEGATIVE (NEG)
[2020-09-21] MEDS ORDERED: ONDA4TAB7 PO (07:01)
[2020-09-21] MEDS ORDERED: FAMO40TA57 PO (07:01)
--- NOTE | 2020-09-22 10:14 | NUR ---
IP: Informed pt of negative COVID test. Pt verbalized understanding.
== END 2020-09-21 07:12 | disposition home or self-care (01) ==
LOC: ER 05:11
DX: R10.13 Epigastric pain (principal); Z20.822 Contact with and (suspected) exposure to COVID-19; J44.9 Chronic obstructive pulmonary disease, unspecified; K21.9 Gastro-esophageal reflux disease without esophagitis; G89.29 Other chronic pain; F17.200 Nicotine dependence, unspecified, uncomplicated
CPT/HCPCS: 36415; 71045; 80053; 82274; 82550; 84484; 85025; 85610; 93005; 96361; 96374; 96375; 99285; C9803; J2405; J3490; J7030; U0003; U0005

== ENCOUNTER 2021-04-01 20:13 | Emergency (ER) | payer OTHER, MEDICAID ==
[~2021-04-01] VITALS: Ht 188 cm; Wt 100.0 kg
[~2021-04-01 20:13] MED LIST changes: +FAMO40TA57 PO
--- NOTE | 2021-04-01 20:35 | PHYS DOC ---
Past Medical History Past Medical History: Arthritis, COPD, Depression, GERD, Other Additional Past Medical Histor: CHRONIC PAIN (JENNIFERMILIND Wells EXTRUDING DEPARTMENT SUPERVISOR) Past Surgical History: No Surgical History (JENNIFERMILIND Wells EXTRUDING DEPARTMENT SUPERVISOR) Smoking Status: Current Every Day Smoker Alcohol Use: Rarely Drug Use: Marijuana (MAGALIMILIND Irene EXTRUDING DEPARTMENT SUPERVISOR) General Adult EDM: Chief Complaint: ABDOMINAL PAIN HPI: HPI: Patient is a 65 year old male with history of COPD, depression, acid reflux, who presents to the ED today complaining of burning 8 out of 10 epigastric abdominal pain that has been going on for 3 days. Patient states he has tried Tums with no relief. Patient states this feels like an acid reflux episode. Patient denies any fever, or diarrhea, he states occasionally when he is laying down he feels like he is going to vomit. Patient states he had similar symptoms a couple months ago and the symptoms were attributed to acid reflux. Patient states he has received both his Covid vaccines Moderna. (JENNIFERPriscillaMILIND Irene EXTRUDING DEPARTMENT SUPERVISOR) Review of Systems: Review of Systems: Constitutional: Denies fever or chills. [] Eyes: Denies change in visual acuity. [] HENT: Denies nasal congestion or sore throat. [] Respiratory: Denies cough or shortness of breath. [] Cardiovascular: Denies chest pain or edema. [] GI: Reports epigastric abdominal pain, denies nausea, vomiting, bloody stools or diarrhea. [] : Denies dysuria. [] Musculoskeletal: Denies back pain or joint pain. [] Integument: Denies rash. [] Neurologic: Denies headache, focal weakness or sensory changes. [] Psychiatric: Denies depression or anxiety. [] (SHAREEISMAELMILIND Wells EXTRUDING DEPARTMENT SUPERVISOR) Heart Score: C/O Chest Pain: N/A Risk Factors: Risk Factors: DM, Current or recent (<one month) smoker, HTN, HLP, family history of CAD, obesity. Risk Scores: Score 0 - 3: 2.5% MACE over next 6 weeks - Discharge Home Score 4 - 6: 20.3% MACE over next 6 weeks - Admit for Clinical Observation Score 7 - 10: 72.7% MACE over next 6 weeks - Early Invasive Strategies (MILIND DE LOS SANTOS EXTRUDING DEPARTMENT SUPERVISOR) Allergies: Allergies: Allergies Coded Allergies Type Severity Reaction Last Updated Verified No Known Drug Allergies 11/25/19 No (MILIND DE LOS SANTOS EXTRUDING DEPARTMENT SUPERVISOR) Physical Exam: PE: Constitutional: Well developed, well nourished, no acute distress, non-toxic appearance. [] HENT: Normocephalic, atraumatic, bilateral external ears normal, oropharynx moist, no oral exudates, nose normal. [] Eyes: PERRLA, EOMI, conjunctiva normal, no discharge. [] Neck: Normal range of motion, no tenderness, supple, no stridor. [] Cardiovascular:Heart rate regular rhythm, no murmur [] Lungs & Thorax: Bilateral breath sounds clear to auscultation [] Abdomen: Bowel sounds normal, soft, mild tenderness to the epigastric region, no right upper quadrant or right lower quadrant tenderness, no masses, no pulsatile masses. [] Skin: Warm, dry, no erythema, no rash. [] Back: No tenderness, no CVA tenderness. [] Extremities: No tenderness, no cyanosis, no clubbing, ROM intact, no edema. [] Neurologic: Alert and oriented X 3, normal motor function, normal sensory function, no focal deficits noted. [] Psychologic: Affect normal, judgement normal, mood normal. [] (MILIND DE LOS SANTOS APRN) EKG: EKG: [] (MILIND DE LOS SANTOS APRN) Radiology/Procedures: Radiology/Procedures: []PROCEDURE: PORTABLE CHEST 1V EXAM: AP View of the chest DATE: 04/01/2021 9:01 PM INDICATION: Reason: epigastric pain / Spl. Instructions: / History: COMPARISON: No Prior FINDINGS: The heart is not enlarged. Mediastinal and hilar contours are normal. Linear opacities lung bases likely scarring/atelectasis. Otherwise, no focal parenchymal airspace opacity. No pleural effusion or pneumothorax. IMPRESSION: Linear opacities lung bases likely scarring/atelectasis Electronically signed by: Branden Campo MD (04/01/2021 9:24 PM) [facility] DICTATED and SIGNED BY: BRANDEN CAMPO MD DATE: 04/01/215947TGC1 0 (MILIND DE LOS SANTOS EXTRUDING DEPARTMENT SUPERVISOR) Course & Med Decision Making: Course & Med Decision Making Pertinent Labs and Imaging studies reviewed. (See chart for details) This is a 65-year-old male patient presenting to the ED today complaining of epigastric abdominal pain, patient attributes his symptoms to acid reflux. He has tried Tums with no relief. Vitals on arrival to the ED temperature 98.9, heart rate 87, respiration 18 on room air, O2 sats 94 percent, blood pressure 160/86, patient has no history of hypertension but states he will follow-up with his own doctor. He is also a smoker, encouraged him to consider smoking cessation. CBC with a WBC of 14.0, CMP with no acute findings. Chest x-ray is negative. EKG and troponin negative. Patient symptoms are likely acid reflux, will give him Protonix and Zofran and GI cocktail. He has complete relief of his symptoms and would like to go home. Discharged on Protonix. We talked about dietary measures to manage and prevent acid reflux. (MILIND DE LOS SANTOS APRN) Course & Med Decision Making I have participated in the care of this patient and I have reviewed and agree with all pertinent clinical information above including history, exam, and recommendations. (AMANDA ZAMAN DO) Dragon Disclaimer: Dragon Disclaimer: This electronic medical record was generated, in whole or in part, using a voice recognition dictation system. (MILIND DE LOS SANTOS APRN) Departure Departure Impression: Primary Impression: Epigastric abdominal pain Additional Impression: GERD (gastroesophageal reflux disease) Qualified Codes: K21.9 - Gastro-esophageal reflux disease without esophagitis Disposition: HOME / SELF CARE / HOMELESS Condition: STABLE Referrals: RADHIKA ROMERO MD (PCP) follow up next week Patient Instructions: Abdominal Pain (Nonspecific), Diet for Gastroesophageal Reflux Disease, Adult, [id number] Additional Instructions: You were evaluated in the emergency room, your symptoms suspicious of acid reflux, we encourage you to consider smoking cessation. Use the prescribed Protonix as ordered. Your blood pressure is running high at 160/86, consider following up with your primary care doctor for blood pressure management Scripts Famotidine (PEPCID) 20 Mg Tablet 20 MG PO DAILY, #14 TAB Prov: MILIND DE LOS SANTOS APRN 04/01/21 MILIND DE LOS SANTOS APRN Apr 01, 2021 20:35 AMANDA ZAMAN DO Apr 01, 2021 21:56
[2021-04-01 20:40] LABS: BASO # 0.2 x10^3/uL (0.0-0.2); BASO % 1 % (0-3); EOS # 0.1 x10^3/uL (0.0-0.7); EOS % 0 % (0-3); HEMATOCRIT 43.8 % (39.0-53.0); HEMOGLOBIN 15.1 g/dL (13.0-17.5); LYMPH # 3.4 x10^3/uL (1.0-4.8); LYMPH % 24 % (24-48); MEAN CORPUSCULAR HEMOGLOBIN 33 pg (25-35); MEAN CORPUSCULAR HGB CONC 34 g/dL (31-37); MEAN CORPUSCULAR VOLUME 97 fL (79-100); MONO # 1.2 x10^3/uL (0.0-1.1); MONO % 8 % (0-9); NEUT # 9.2 x10^3/uL (1.8-7.7); NEUT % 66 % (31-73); PLATELET COUNT 307 x10^3/uL (140-400); RED BLOOD COUNT 4.52 x10^6/uL (4.30-5.70); RED CELL DISTRIBUTION WIDTH 13.3 % (11.5-14.5)
[2021-04-01 20:52] LABS: CALCIUM 9.2 mg/dL (8.5-10.1); CREATININE 1.3 mg/dL (0.7-1.3); GFR 67.5; POTASSIUM 3.4 mmol/L (3.5-5.1)
[2021-04-01 20:57] LABS: ALBUMIN 3.5 g/dL (3.4-5.0); ALBUMIN/GLOBULIN RATIO 0.9 (1.0-1.7); MAGNESIUM 1.6 mg/dL (1.8-2.4); TOTAL BILIRUBIN 0.4 mg/dL (0.2-1.0); TOTAL PROTEIN 7.5 g/dL (6.4-8.2)
[2021-04-01] MEDS ORDERED: FAMOTIDINE 20 MG/2 ML VIAL IVP ONE (21:00)
[2021-04-01] MEDS ORDERED: LIDO:MAALOX 1:1 20 ML SINGLE DOSE. SWSW ONE (21:00)
[2021-04-01] MEDS ORDERED: ONDANSETRON PF 4 MG/2 ML VIAL. IVP ONE (21:00)
--- NOTE | 2021-04-01 21:26 | RAD ---
EXAM: AP View of the chest DATE: 04/01/2021 9:01 PM INDICATION: Reason: epigastric pain / Spl. Instructions: / History: COMPARISON: No Prior FINDINGS: The heart is not enlarged. Mediastinal and hilar contours are normal. Linear opacities lung bases likely scarring/atelectasis. Otherwise, no focal parenchymal airspace opa city. No pleural effusion or pneumothorax. IMPRESSION: Linear opacities lung bases likely scarring/atelectasis Electronically signed by: Branden Pedraza MD (04/01/2021 9:24 PM) [facility]
[2021-04-01 21:40] VITALS: BP 157/90
[2021-04-01] MEDS ORDERED: FAMO-63 PO (21:48)
[2021-04-01 22:09] LABS: BILIRUBIN,URINE NEGATIVE (NEG); CLARITY,URINE CLOUDY; COLOR,URINE YELLOW; NITRITE,URINE NEGATIVE (NEG); PROTEIN,URINE NEGATIVE (NEG-TRACE)
[2021-04-01 22:16] LABS: AMPHETAMINE/METHAMPHETAMINE NEG (NEG); BARBITURATES NEG (NEG); BENZODIAZEPINES NEG (NEG); CANNABINOIDS POS (NEG); COCAINE NEG (NEG); METHADONE NEG (NEG); OPIATES NEG (NEG); PHENCYCLIDINE NEG (NEG)
[2021-04-01 22:20] LABS: AMORPHOUS SEDIMENT,UR PRESENT /HPF; BACTERIA,URINE 0 /HPF (0-FEW)
--- NOTE | 2021-04-03 10:32 | EKG ---
[facility] [address] [place] [address] Test Date: 2021-04-01 Test Time: 20:41:42 Pat Name: ALEXIS GRAY Department: Room: Gender: M Partition Notcher: : 1955 Requested By: MILIND DE LOS SANTOS Order Number: [id number] Reading MD: Osmani Cardozo MD Measurements Intervals Rebecca Rate: 91 P: DE: QRS: -157 QRSD: 82 T: 145 QT: 350 QTc: 432 Interpretive Statements SR PACS PVC LIMB LEAD MISPLACEMENT Electronically Signed On 04-03-2021 10:32:06 CDT by Osmani Cardozo MD
== END 2021-04-01 22:10 | disposition home or self-care (01) ==
LOC: ER 20:13
DX: K21.9 Gastro-esophageal reflux disease without esophagitis (principal); J44.9 Chronic obstructive pulmonary disease, unspecified; G89.29 Other chronic pain; F17.200 Nicotine dependence, unspecified, uncomplicated
CPT/HCPCS: 36415; 71045; 80053; 80307; 81001; 83690; 83735; 83880; 84484; 85025; 93005; 96374; 96375; 99285; J2405; J3490